=== PATIENT | male | born 1985 | race African-American/Black ===

== ENCOUNTER 2018-04-14 20:55 | Emergency (ER) | payer MEDICAID, SELFPAY ==
[2018-04-14 20:57] VITALS: BP 126/71; PULSE 91; RESP 18; TEMP 36.2; O2SAT 97; BMI 21.4
--- NOTE | 2018-04-14 21:15 | ED.VISSUMM ---
- ER Visit Summary Date of Service: 04/14/18 Chief Complaint: Sore throat History of Present Illness: The patient is a 33 M with greater than 1 week of sore throat, he also has rhinorrhea and some sinus pressure. He has no cough. He has no chest pain or shortness of breath no reported fever or chills. Physical Examination: Not appear in acute distress. Moist mucous membranes, no obvious facial deformity. He has rhinorrhea, swollen nasal turbinates, beefy red. He has sinus tenderness and postnasal drip. No C-spine tenderness supple neck. Regular rate and rhythm without any obvious murmurs Clear lungs bilaterally speaking in full sentences without any obvious respiratory distress Abdomen soft and nontender no guarding or rebound Moves all extremities without any difficulty or pain. Skin does not show any obvious rashes or lesions, no trauma. Alert oriented ?3 with no gross focal deficit Emergency Department Course and Treatment: Patient has sinusitis it has been greater than a week so he meets criteria for antibiotic treatment. I will start antibiotics tonight. Discharge stable condition Impression: [Sinusitis] This note was generated with [employer] dictation software. It may contain incorrect words, spelling, and punctuation that were not noted in review of the chart prior to signing ED Disposition - Plan for ED Patient: Disposition: Home or Assisted Living Chief Complaint: Sore Throat Instructions: Acute Sinusitis Prescriptions: Amoxicillin 500 mg PO BID #19 tab Referrals: Care Physician,No Primary [Primary Care Provider] - 3-5 Days
[2018-04-14] MEDS: AMOXICILLIN 500 MG CAPSULE PO (21:31)
== END 2018-04-14 21:50 | disposition home or self-care (01) ==
PROVIDERS: Emergency Provider Emergency Medicine
DX: J01.90 Acute sinusitis, unspecified (principal); Z72.0 Tobacco use
CPT/HCPCS: 99283